=== PATIENT | female | born 1980 | race Caucasian/White ===

== ENCOUNTER 2016-06-17 11:53 | Emergency (ER) | payer BC ==
[~2016-06-17] VITALS: Ht 170.2 cm; Wt 86.4 kg
[2016-06-17 11:58] VITALS: BP 147/84; PULSE 84; TEMP 98.1
[2016-06-17] MEDS ORDERED: PHENERGAN 25 TA25 MG PO (13:12)
== END 2016-06-17 14:12 | disposition home or self-care (01) ==
LOC: COL.ER 11:53
DX: R11.10 Vomiting, unspecified (principal)
CPT/HCPCS: J2550

== ENCOUNTER 2016-07-02 11:36 | Emergency (ER) | payer BC ==
[~2016-07-02] VITALS: Ht 170.2 cm; Wt 100.0 kg
[~2016-07-02 11:36] MED LIST: PHENERGAN 25 TA25 MG PO
[2016-07-02 11:39] VITALS: BP 130/81; PULSE 86; TEMP 97.2
[2016-07-02] MEDS ORDERED: MULTIPLE VITAMI1 CAP PO (11:43)
[2016-07-02] MEDS ORDERED: ZOFRAN8 MG PO (11:58)
[2016-07-02] MEDS ORDERED: ULTRAM 50MG TAB50 MG PO (11:58)
[2016-07-02 12:24] LABS: CALCIUM 9.4 mg/dL (8.4-10.2); CREATININE, serum 0.75 mg/dL (0.52-1.25); POTASSIUM 4.2 mmol/L (3.4-5.0)
== END 2016-07-02 13:11 | disposition home or self-care (01) ==
LOC: COL.ER 11:36
PROVIDERS: Emergency Medicine
DX: E86.9 Volume depletion, unspecified (principal); R11.2 Nausea with vomiting, unspecified; R19.7 Diarrhea, unspecified; F17.210 Nicotine dependence, cigarettes, uncomplicated
CPT/HCPCS: J2405; J7030

== ENCOUNTER → 2016-07-03 | Outpatient (CLI) | payer BC ==
[~2016-07-03] MED LIST changes: +MULTIPLE VITAMI1 CAP PO; +ULTRAM 50MG TAB50 MG PO; +ZOFRAN8 MG PO
== END ==
LOC: ZCOL.LAB 10:00
DX: Z53.9 Procedure and treatment not carried out, unspecified reason (principal)

== ENCOUNTER 2016-07-13 20:09 | Emergency (ER) | payer BC ==
[~2016-07-13] VITALS: Ht 172.7 cm; Wt 100.0 kg
[2016-07-13 20:12] VITALS: TEMP 98
[2016-07-13] MEDS ORDERED: ULTRAM 50MG TAB50 MG PO (20:31)
[2016-07-13] MEDS ORDERED: ZOFRAN8 MG PO (20:31)
[2016-07-13 21:04] LABS: BASO # 0.1 (0.0-0.2); BASO % 0.9 % (0.0-2.0); EOS # 0.2 (0.0-0.7); GRAN # 7.3 (1.4-6.5); GRAN % 62.1 % (42.2-75.2); HEMATOCRIT 43.7 % (37.0-47.0); HEMOGLOBIN 14.6 g/dl (12.5-16.0); LYMPH # 3.2 (1.2-3.4); LYMPH % 27.6 % (20.0-51.0); MEAN CELL VOLUME 94 fl (80.0-100.0); MEAN CORPUSCULAR HEMOGLOBIN 31 pg (27.0-31.0); MEAN CORPUSCULAR HGB CONC 33 g/dl (33.0-37.0); MEAN PLATELET VOLUME 10.2 fl (7.4-10.4); MONO # 0.8 (0.1-0.6); MONO % 7.1 % (1.7-9.3); PLATELET COUNT 321 K/mm3 (130-400); RED BLOOD COUNT 4.65 M/mm3 (4.10-5.30); REDCELL DISTRIBUTION WIDTH-CV 13.5 % (11.5-14.5); WHITE BLOOD COUNT 11.8 K/mm3 (4.8-10.8)
[2016-07-13 21:11] LABS: ADJUSTED CALCIUM 9.3 mg/dL (8.4-10.2); ALBUMIN 4.4 gm/dL (3.5-5.0); BILIRUBIN,TOTAL 0.5 mg/dL (0.0-1.0); CALCIUM 9.6 mg/dL (8.4-10.2); CREATININE, serum 0.83 mg/dL (0.52-1.25); POTASSIUM 3.9 mmol/L (3.4-5.0); TOTAL PROTEIN 7.9 gm/dL (6.4-8.2)
[2016-07-13 21:36] VITALS: BP 125/92; PULSE 75
[2016-07-13 21:40] LABS: PH 5 (5-8); URINE APPEARANCE Hazy; URINE BACTERIA None Seen /hpf; URINE BILIRUBIN Negative (NEGATIVE); URINE BLOOD Negative (NEGATIVE); URINE COLOR Yellow; URINE GLUCOSE Negative (NEGATIVE); URINE KETONE Negative (NEGATIVE); URINE RBC None Seen /hpf; URINE UROBILINOGEN Negative (NEGATIVE); URINE WBC 0-2 /hpf
== END 2016-07-13 22:18 | disposition home or self-care (01) ==
LOC: COL.ER 20:09
PROVIDERS: Emergency Medicine
DX: R10.84 Generalized abdominal pain (principal); R11.10 Vomiting, unspecified; R19.7 Diarrhea, unspecified
CPT/HCPCS: J1170; J1885; J2405; J7030

== ENCOUNTER → 2016-07-26 | Outpatient (CLI) | payer BC | LOC: COL.RAD 08:05 | DX: R11.2 Nausea with vomiting, unspecified (principal); R10.11 Right upper quadrant pain ==

== ENCOUNTER → 2016-08-17 | Outpatient (CLI) | payer BC | LOC: COL.RAD 08:30 | DX: R10.11 Right upper quadrant pain (principal); R19.7 Diarrhea, unspecified; R11.2 Nausea with vomiting, unspecified | CPT/HCPCS: A9537; J2805 ==

== ENCOUNTER 2017-07-14 20:49 | Emergency (ER) | payer BC ==
[~2017-07-14] VITALS: Ht 170.2 cm; Wt 98.8 kg
[2017-07-14 20:51] VITALS: BP 151/83; TEMP 98.1
[2017-07-14 22:10] VITALS: PULSE 87
== END 2017-07-14 22:10 | disposition home or self-care (01) ==
LOC: COL.ER 20:49
DX: S83.91XA Sprain of unspecified site of right knee, initial encounter (principal); F17.210 Nicotine dependence, cigarettes, uncomplicated; Z90.49 Acquired absence of other specified parts of digestive tract; Z98.51 Tubal ligation status; Z98.890 Other specified postprocedural states; W50.1XXA Accidental kick by another person, initial encounter
CPT/HCPCS: 31289; L1830; L1846

== ENCOUNTER 2019-06-18 09:31 | Emergency (ER) | payer BC ==
[~2019-06-18] VITALS: Ht 170.2 cm; Wt 120.5 kg
[2019-06-18 10:08] LABS: COLLECTION METHOD CLEAN CATCH
[2019-06-18 10:17] LABS: PH 8 (5-8); SQUAMOUS EPITHELIAL 0-2 /hpf; URINE APPEARANCE Clear; URINE BACTERIA Rare /hpf; URINE BILIRUBIN Negative (NEGATIVE); URINE BLOOD Negative (NEGATIVE); URINE COLOR Straw; URINE GLUCOSE Negative (NEGATIVE); URINE KETONE Negative (NEGATIVE); URINE LEUKOCYTE ESTERASE 1+ (NEGATIVE); URINE NITRATE Negative (NEGATIVE); URINE PROTEIN(semi-quant) Negative (NEGATIVE); URINE RBC 0-2 /hpf; URINE UROBILINOGEN Negative (NEGATIVE)
[2019-06-18 11:02] LABS: BASO # 0.1 (0.0-0.2); BASO % 1.2 % (0.0-2.0); EOS # 0.3 (0.0-0.7); EOS % 2.5 % (0-4.0); GRAN # 6.2 (1.4-6.5); HEMATOCRIT 41.6 % (37.0-47.0); HEMOGLOBIN 13.6 g/dl (12.5-16.0); LYMPH # 2.6 (1.2-3.4); LYMPH % 25.4 % (20.0-51.0); MEAN CELL VOLUME 90 fl (80.0-100.0); MEAN CORPUSCULAR HEMOGLOBIN 30 pg (27.0-31.0); MEAN CORPUSCULAR HGB CONC 33 g/dl (33.0-37.0); MEAN PLATELET VOLUME 10.2 fl (7.4-10.4); MONO # 0.8 (0.1-0.6); MONO % 8.4 % (1.7-9.3); PLATELET COUNT 391 K/mm3 (130-400); RED BLOOD COUNT 4.61 M/mm3 (4.10-5.30); REDCELL DISTRIBUTION WIDTH-CV 14.2 % (11.5-14.5)
[2019-06-18 11:13] LABS: ALBUMIN 4.6 gm/dL (3.5-5.0); BILIRUBIN,TOTAL 0.4 mg/dL (0.0-1.0); C-REACTIVE PROTEIN 0.9 mg/dL (0.0-0.9); CALCIUM 9.3 mg/dL (8.4-10.2); CREATININE, serum 0.74 (0.52-1.25); POTASSIUM 4.2 mmol/L (3.4-5.0); TOTAL PROTEIN 8.2 gm/dL (6.4-8.2)
[2019-06-18] MEDS ORDERED: ZOFRAN ODT4 MG PO (12:38)
[2019-06-18 13:45] VITALS: BP 134/80; PULSE 80; TEMP 98
== END 2019-06-18 13:15 | disposition home or self-care (01) ==
LOC: COL.ER 09:31
PROVIDERS: Physician Assistant
DX: R11.10 Vomiting, unspecified (principal); R19.7 Diarrhea, unspecified; F17.290 Nicotine dependence, other tobacco product, uncomplicated
CPT/HCPCS: J2405; J7030

== ENCOUNTER 2019-07-03 07:54 | Emergency (ER) | payer BC ==
[~2019-07-03] VITALS: Ht 170.2 cm; Wt 124.7 kg
[~2019-07-03 07:54] MED LIST changes: +ZOFRAN ODT4 MG PO
[2019-07-03 07:59] VITALS: BP 127/78; TEMP 98.2
[2019-07-03 09:17] VITALS: PULSE 78
== END 2019-07-03 09:17 | disposition home or self-care (01) ==
LOC: COL.ER 07:54
DX: S93.601A Unspecified sprain of right foot, initial encounter (principal); Z98.51 Tubal ligation status; X58.XXXA Exposure to other specified factors, initial encounter

== ENCOUNTER 2019-11-11 11:21 | Emergency (ER) | payer BC ==
[~2019-11-11] VITALS: Ht 170.2 cm; Wt 127.3 kg
[2019-11-11 11:26] VITALS: BP 129/90; PULSE 65; TEMP 97.7
[2019-11-11] MEDS ORDERED: FLEXERIL 1010 MG/TAB PO ×2 (11:39→11:53)
[2019-11-11] MEDS ORDERED: MEDROL 4MG DOSPA4 MG PO (11:53)
== END 2019-11-11 12:03 | disposition home or self-care (01) ==
LOC: COL.ER 11:21
DX: M54.31 Sciatica, right side (principal); F17.210 Nicotine dependence, cigarettes, uncomplicated; Z88.7 Allergy status to serum and vaccine; Z90.49 Acquired absence of other specified parts of digestive tract

== ENCOUNTER → 2021-12-22 | Outpatient (RCR) | payer OTHER ==
[~2021-12-22] MED LIST changes: +FLEXERIL 1010 MG/TAB PO; +MEDROL 4MG DOSPA4 MG PO
== END | disposition home or self-care (01) ==
LOC: WSOH
DX: S67.194D Crushing injury of right ring finger, subsequent encounter (principal); S61.304D Unspecified open wound of right ring finger with damage to nail, subsequent encounter; S62.664D Nondisplaced fracture of distal phalanx of right ring finger, subsequent encounter for fracture with routine healing; G80.9 Cerebral palsy, unspecified; Y99.0 Civilian activity done for income or pay
CPT/HCPCS: A9270-GY

== ENCOUNTER 2022-02-14 08:03 | Outpatient (RCR) | payer OTHER | END 2022-02-21 | disposition home or self-care (01) | LOC: WSOH | DX: S67.194D Crushing injury of right ring finger, subsequent encounter (principal); S61.304D Unspecified open wound of right ring finger with damage to nail, subsequent encounter; S62.664D Nondisplaced fracture of distal phalanx of right ring finger, subsequent encounter for fracture with routine healing; Y99.0 Civilian activity done for income or pay; G80.9 Cerebral palsy, unspecified ==